=== PATIENT | female | born 2000 | race African-American/Black ===

== ENCOUNTER 2023-08-05 23:01 | Emergency (ER) | payer SELFPAY ==
[2023-08-05] MEDS ORDERED: Acetaminophen 500 MG TAB ONE (23:18)
[2023-08-05] MEDS ORDERED: Ondansetron ODT 4 MG TAB ONE (23:19)
[2023-08-06 00:09] LABS: #Eosinphils 0.1 thou/uL (0.0-0.7); #Monocytes 0.7 thou/uL (0.11-0.59); #Neutrophils 3.8 thou/uL (1.40-6.50); %Basophils 0.3 % (0.0-1.0); %Eosinophils 1.9 % (0.0-10.0); %Lymphocytes 31.9 % (21.0-51.0); %Monocytes 10.8 % (0.0-10.0); Hematocrit 34.3 % (36.0-47.0); Hemoglobin 11.2 g/dL (12.0-16.0); Mean Corpuscular HGB CONC 32.7 g/dL (32.0-36.0); Mean Corpuscular Hemoglobin 28.3 pg (27.0-31.0); Mean Corpuscular Volume 86.6 fl (78.0-98.0); Mean Platelet Volume 10.6 fL (7.4-10.4); Platelet Count 222 10x3/uL (130-400); RBC Distribution Width 14.4 % (11.5-14.5); Red Blood Cell (RBC) Count 3.96 mill/uL (4.20-5.40); White Blood Cell (WBC) Count 6.8 10x3/uL (4.8-10.8)
[2023-08-06 00:18] LABS: BHCG - Serum Negative (NEGATIVE); Pregs Control Background? CLEAR/WHITE (CLR/WHITE); Pregs Control Bar Appear? YES (CONTROL BAR)
[2023-08-06 00:26] LABS: Influenza A by NAA Not Detected (NotDetected); Influenza B by NAA Not Detected (NotDetected); SARS-CoV-2 NAA Rapid Test Not Detected (NotDetected)
[2023-08-06 00:34] LABS: ALT (SGPT) 46 U/L (8-55); AST (SGOT) 35 U/L (5-34); Albumin 3.5 g/dL (3.5-5.0); Alkaline Phosphatase 57 U/L (40-110); Anion Gap 13 mmol/L (10-20); BUN (Urea Nitrogen) 5 mg/dL (7.0-18.7); Bilirubin, Total 0.3 mg/dL (0.2-1.2); Calc. Creatinine Clearance 0 mL/min (70-130); Carbon Dioxide 27 mmol/L (22-29); Chloride 102 mmol/L (98-107); Estimated GFR 118; Globulin 3.4 g/dL (2.4-3.5); Glucose 87 mg/dL (70-105); Potassium 3.4 mmol/L (3.5-5.1); Protein, Total 6.9 g/dL (6.0-8.3); Sodium 139 mmol/L (136-145)
[2023-08-06 00:38] LABS: Troponin I 0.011 ng/mL (< 0.028)
[2023-08-06 02:00] LABS: Bacteria/HPF 4+ HPF (None Seen); Bilirubin Negative (Negative); Blood, Urine Trace (Negative); CAUTI Indications for Culture Pelvic or flank pain; Clarity Turbid (Clear); Glucose, Urine (Dipstick) Normal (Negative); Ketone, Urine Negative (Negative); Leukocyte 500 Leu/uL (Negative); Nitrite 2+ (Negative); Protein, Urine (Dipstick) 30 mg/dL (Neg-Trace); RBC/HPF 0-3 HPF (0-3); Specific Gravity, Urine 1.011 (1.002-1.036); Squamous Epithelial 0-3 HPF (0-3); WBC/HPF Greater than 50 HPF (0-3)
[2023-08-06 02:01] LABS: Urine Culture Reflex Yes Yes
[2023-08-06 16:57] LABS: Chlam.trachomatis by PCR,Urine DETECTED (NotDetected); GC N.gonorrhoeae PCR,UrineVOID Not Detected (NotDetected)
== END 2023-08-06 02:23 | disposition home or self-care (01) ==
LOC: ERS 23:01
DX: N10 Acute pyelonephritis (principal); R07.89 Other chest pain
CPT/HCPCS: 36415; 71045; 80053; 81001; 84484; 84703; 85025; 87077; 87086; 87480; 87491; 87510; 87591; 87660; 93005; Q0162

== ENCOUNTER 2023-09-01 12:31 | Inpatient (IN) | payer OTHER, SELFPAY ==
[2023-09-01 13:05] LABS: Bacteria/HPF 4+ HPF (None Seen); Bilirubin Negative (Negative); Blood, Urine Negative (Negative); CAUTI Indications for Culture Pelvic or flank pain; Clarity Turbid (Clear); Glucose, Urine (Dipstick) Normal (Negative); Ketone, Urine Negative (Negative); Leukocyte 250 Leu/uL (Negative); Nitrite 1+ (Negative); Protein, Urine (Dipstick) Negative (Neg-Trace); RBC/HPF 0-3 HPF (0-3); Specific Gravity, Urine 1.011 (1.002-1.036); Urobilinogen Normal mg/dL (Less than 2); WBC/HPF 21-50 HPF (0-3); pH, Urine 6.5 (5.0-9.0)
[2023-09-01 13:06] LABS: Amphetamine Not Detected (NotDetected); Barbiturates Screen Not Detected (NotDetected); Benzodiazepine Screen Detected (NotDetected); Cocaine Metabolite Screen Not Detected (NotDetected); Methadone Not Detected (NotDetected); Methamphetamine Not Detected (NotDetected); Opiate Screen Not Detected (NotDetected); Oxycodone Screen Not Detected (NotDetected); Phencyclidine (PCP) Not Detected (NotDetected); THC/Cannabinoid Screen Detected (NotDetected); Tricyclic Screen Not Detected (NotDetected)
[2023-09-01 13:09] LABS: Pregnancy Test - Urine (BHCG) Negative (Negative); Pregu Control Background? CLEAR/WHITE (CLR/WHITE); Pregu Control Bar Appear? YES (CONTROL BAR); Specific Gravity 1.011 (1.002-1.036); Urine Culture Reflex Yes Yes
[2023-09-01] MEDS ORDERED: Sodium Chloride 0.9% 100 ML ONE (13:29)
[2023-09-01] MEDS ORDERED: cefTRIAXone (ROCEPHIN) 1 GM VIAL ONE (13:29)
[2023-09-01 13:36] LABS: #Basophils Less than 0.03 10x3/uL (0.0-0.2); #Eosinphils Less than 0.03 10x3/uL (0.0-0.7); %Basophils 0.1 % (0.0-1.0); %Eosinophils 0.2 % (0.0-10.0); %Monocytes 6.6 % (0.0-10.0); %Neutrophils 75.8 % (42.0-75.0); Hematocrit 36.8 % (36.0-47.0); Hemoglobin 11.5 g/dL (12.0-16.0); Mean Corpuscular HGB CONC 31.3 g/dL (32.0-36.0); Mean Corpuscular Hemoglobin 27.1 pg (27.0-31.0); Mean Corpuscular Volume 86.6 fL (78.0-98.0); Mean Platelet Volume 10.3 fL (7.4-10.4); Platelet Count 358 10x3/uL (130-400); RBC Distribution Width 14.6 % (11.5-14.5); Red Blood Cell (RBC) Count 4.25 mill/uL (4.20-5.40)
[2023-09-01] MEDS ORDERED: Calcium Carbonate 500 MG ChewTAB PO PRN (13:58)
[2023-09-01] MEDS ORDERED: Senokot S 8.6-50 MG TAB PO PRN (13:58)
[2023-09-01] MEDS ORDERED: Acetaminophen 325 MG TAB PO PRN (13:58)
[2023-09-01 14:07] LABS: Alcohol Less than 10.0 mg/dL (Less than 10)
[2023-09-01 14:10] LABS: Acetaminophen 16 mcg/mL (10.0-30.0); Salicylate Less than 8.0 mg/dL (15.0-30.0)
[2023-09-01 14:11] LABS: ALT (SGPT) 10 U/L (8-55); AST (SGOT) 11 U/L (5-34); Albumin 4.1 g/dL (3.5-5.0); Alkaline Phosphatase 52 U/L (40-110); Anion Gap 13 mmol/L (10-20); BUN (Urea Nitrogen) 5 mg/dL (7.0-18.7); Bilirubin, Total 0.2 mg/dL (0.2-1.2); Calc. Creatinine Clearance 0 mL/min (70-130); Calcium 9.2 mg/dL (7.8-10.44); Carbon Dioxide 23 mmol/L (22-29); Chloride 105 mmol/L (98-107); Estimated GFR 125; Globulin 4.1 g/dL (2.4-3.5); Glucose 102 mg/dL (70-105); Lipase 22 U/L (8-78); Potassium 4.4 mmol/L (3.5-5.1); Protein, Total 8.2 g/dL (6.0-8.3); Sodium 137 mmol/L (136-145)
[2023-09-01] MEDS ORDERED: Doxycycline 100 MG in Sodium Chloride 0.9% 100 ML IVPB SCH (14:45)
[2023-09-01] MEDS ORDERED: HYDROcodone/Acetaminophen 5/325 mg Tablet PO PRN (15:00)
[2023-09-01 16:02] VITALS: BMI 19.1
[2023-09-01] MEDS: Sodium Chloride 0.9% 1,000 ML IV SCH (16:23)
[2023-09-01] MEDS: Azithromycin 200 MG/5 ML Oral Suspension PO SCH (16:24)
[2023-09-01] MEDS: Metoclopramide HCl 10 MG (2 mL) VIAL IVP SCH (16:58)
[2023-09-01] MEDS: Meropenem 1 GM in Sodium Chloride 0.9% 100 ML IVPB SCH (17:06)
[2023-09-01] MEDS: metroNIDAZOLE 500 MG in Premix 1 BAG IVPB SCH (20:47)
[2023-09-01] MEDS: Ondansetron PF 4 MG/2 ML Vial IVP PRN (20:47)
[2023-09-01] MEDS ORDERED: Meropenem 1 GM in Sodium Chloride 0.9% 100 ML IVPB SCH (22:00)
[2023-09-01] MEDS: Ondansetron PF 4 MG/2 ML Vial IVP SCH (22:07)
[2023-09-01] MEDS: Famotidine/PF 20 mg/2ml Vial SLOW IVP SCH (22:12)
[2023-09-02] MEDS: Meropenem 1 GM in Sodium Chloride 0.9% 100 ML IVPB SCH (02:09)
[2023-09-02 05:15] LABS: #Basophils Less than 0.03 10x3/uL (0.0-0.2); %Basophils 0.2 % (0.0-1.0); %Eosinophils 0.6 % (0.0-10.0); %Lymphocytes 32.9 % (21.0-51.0); %Monocytes 6.7 % (0.0-10.0); %Neutrophils 59.5 % (42.0-75.0); Hematocrit 33.2 % (36.0-47.0); Hemoglobin 10.5 g/dL (12.0-16.0); Mean Corpuscular HGB CONC 31.6 g/dL (32.0-36.0); Mean Corpuscular Hemoglobin 27.5 pg (27.0-31.0); Mean Corpuscular Volume 86.9 fL (78.0-98.0); Mean Platelet Volume 10.2 fL (7.4-10.4); Platelet Count 338 10x3/uL (130-400); RBC Distribution Width 14.6 % (11.5-14.5); Red Blood Cell (RBC) Count 3.82 mill/uL (4.20-5.40)
[2023-09-02 05:34] LABS: ALT (SGPT) 7 U/L (8-55); AST (SGOT) 8 U/L (5-34); Albumin 3.8 g/dL (3.5-5.0); Alkaline Phosphatase 49 U/L (40-110); Anion Gap 10 mmol/L (10-20); BUN (Urea Nitrogen) 4 mg/dL (7.0-18.7); Bilirubin, Total 0.3 mg/dL (0.2-1.2); Calc. Creatinine Clearance 103 mL/min (70-130); Calcium 8.7 mg/dL (7.8-10.44); Carbon Dioxide 25 mmol/L (22-29); Chloride 106 mmol/L (98-107); Estimated GFR 125; Globulin 3.2 g/dL (2.4-3.5); Glucose 100 mg/dL (70-105); Potassium 3.8 mmol/L (3.5-5.1); Sodium 137 mmol/L (136-145)
[2023-09-02 05:55] LABS: HIV (1/2) Antibody/Antigen Non-Reactive (NonReactive); HIV 1/2 INDEX 0.21 S/CO (<1.00)
[2023-09-02] MEDS: Ketorolac Tromethamine 30 MG (1 mL) VIAL IVP SCH (06:39)
[2023-09-02] MEDS ORDERED: Loperamide HCl 2 MG CAP PO PRN (20:11)
[2023-09-02] MEDS: Saccharomyces boulardii 250 MG CAP PO SCH (20:41)
[2023-09-03 04:01] LABS: #Basophils Less than 0.03 10x3/uL (0.0-0.2); #Eosinphils Less than 0.03 10x3/uL (0.0-0.7); %Basophils 0.3 % (0.0-1.0); %Eosinophils 0.3 % (0.0-10.0); %Lymphocytes 29.5 % (21.0-51.0); %Monocytes 7.7 % (0.0-10.0); %Neutrophils 61.9 % (42.0-75.0); Hematocrit 30.1 % (36.0-47.0); Hemoglobin 9.6 g/dL (12.0-16.0); Mean Corpuscular HGB CONC 31.9 g/dL (32.0-36.0); Mean Corpuscular Hemoglobin 26.7 pg (27.0-31.0); Mean Corpuscular Volume 83.6 fL (78.0-98.0); Mean Platelet Volume 9.9 fL (7.4-10.4); Platelet Count 326 10x3/uL (130-400); RBC Distribution Width 14.3 % (11.5-14.5)
[2023-09-03 04:19] LABS: Anion Gap 13 mmol/L (10-20); BUN (Urea Nitrogen) Less than 4 mg/dL (7.0-18.7); Calc. Creatinine Clearance 102 mL/min (70-130); Calcium 9.1 mg/dL (7.8-10.44); Carbon Dioxide 25 mmol/L (22-29); Chloride 104 mmol/L (98-107); Estimated GFR 125; Glucose 107 mg/dL (70-105); Potassium 3.6 mmol/L (3.5-5.1); Sodium 138 mmol/L (136-145)
[2023-09-03 12:09] VITALS: BP 125/68; TEMP 98.3
== END 2023-09-03 15:32 | disposition home or self-care (01) | DRG 758 ==
LOC: ERS 12:31 → SUATTDRO 12:31 → T4-A 13:57
PROVIDERS: ADMIT Internal Medicine; ATTEND Hospitalist
DX: A56.02 Chlamydial vulvovaginitis (principal); N10 Acute pyelonephritis; Z16.24 Resistance to multiple antibiotics; F12.10 Cannabis abuse, uncomplicated
CPT/HCPCS: 36415; 80048; 80053; 80306; 80307; 81001; 81025; 83605; 83690; 85025; 86140; 87077; 87086; 87186; 87389; 96365; 96375; J0696; J2185; J2405; J2765; J3490; J7050; S0028

== ENCOUNTER 2024-04-22 07:13 | Emergency (ER) | payer OTHER, SELFPAY ==
[2024-04-22] MEDS ORDERED: Ketorolac Tromethamine 30 MG (1 mL) VIAL ONE (07:29)
[2024-04-22] MEDS ORDERED: Droperidol 5 MG/2 ML VIAL ONE (07:30)
[2024-04-22 07:35] LABS: #Basophils Less than 0.03 10x3/uL (0.0-0.2); #Eosinophils Less than 0.03 10x3/uL (0.0-0.7); %Basophils 0.2 % (0.0-1.0); %Eosinophils 0.1 % (0.0-10.0); %Lymphocytes 16.4 % (21.0-51.0); %Monocytes 4.1 % (0.0-10.0); %Neutrophils 78.7 % (42.0-75.0); Hematocrit 40.3 % (36.0-47.0); Hemoglobin 12.9 g/dL (12.0-16.0); Mean Corpuscular Hemoglobin 24.9 pg (27.0-31.0); Mean Corpuscular Volume 77.6 fL (78.0-98.0); Platelet Count 297 10x3/uL (130-400); RBC Distribution Width 18.6 % (11.5-14.5); Red Blood Cell (RBC) Count 5.19 mill/uL (4.20-5.40)
[2024-04-22 07:56] LABS: ALT (SGPT) 11 U/L (8-55); AST (SGOT) 17 U/L (5-34); Albumin 4.4 g/dL (3.5-5.0); Alkaline Phosphatase 46 U/L (40-110); Anion Gap 21 mmol/L (10-20); BHCG - Serum Negative (NEGATIVE); BUN (Urea Nitrogen) 12 mg/dL (7.0-18.7); Bilirubin, Total 0.6 mg/dL (0.2-1.2); Calc. Creatinine Clearance 0 mL/min (70-130); Calcium 9.4 mg/dL (7.8-10.44); Carbon Dioxide 18 mmol/L (22-29); Chloride 101 mmol/L (98-107); Estimated GFR 105; Globulin 4.4 g/dL (2.4-3.5); Glucose 148 mg/dL (70-105); Lipase 16 U/L (8-78); Potassium 4.1 mmol/L (3.5-5.1); Pregs Control Background? CLEAR/WHITE (CLR/WHITE); Pregs Control Bar Appear? YES (CONTROL BAR); Protein, Total 8.8 g/dL (6.0-8.3); Sodium 136 mmol/L (136-145)
[2024-04-22 09:13] LABS: Bilirubin Negative (Negative); Blood, Urine Negative (Negative); CAUTI Indications for Culture Dysuria,urgency,freq; Clarity Turbid (Clear); Glucose, Urine (Dipstick) Normal (Negative); Ketone, Urine Greater than 150 mg/dL (Negative); Leukocyte Negative Leu/uL (Negative); Nitrite Negative (Negative); Protein, Urine (Dipstick) 100 mg/dL (Neg-Trace); RBC/HPF 0-3 HPF (0-3); Specific Gravity, Urine 1.033 (1.002-1.036); Squamous Epithelial 21-50 HPF (0-3); WBC/HPF 0-3 HPF (0-3)
[2024-04-22 09:14] LABS: Bacteria/HPF 1+ HPF (None Seen); Urine Culture Reflex No No
== END 2024-04-22 09:54 | disposition home or self-care (01) ==
LOC: ERS 07:13
DX: K52.9 Noninfective gastroenteritis and colitis, unspecified (principal); N39.0 Urinary tract infection, site not specified; F17.290 Nicotine dependence, other tobacco product, uncomplicated
CPT/HCPCS: 36415; 80053; 81001; 83690; 84703; 85025; 96374; 96375; J1790; J1885

== ENCOUNTER 2025-03-12 15:51 | Emergency (ER) | payer OTHER ==
[2025-03-12 18:27] LABS: BHCG - Serum Negative (NEGATIVE); Pregs Control Background? CLEAR/WHITE (CLR/WHITE); Pregs Control Bar Appear? YES (CONTROL BAR)
[2025-03-12] MEDS ORDERED: Acetaminophen 500 MG TAB ONE (20:35)
== END 2025-03-12 20:34 ==
LOC: ERS 15:51
DX: S62.615A Displaced fracture of proximal phalanx of left ring finger, initial encounter for closed fracture (principal); F17.290 Nicotine dependence, other tobacco product, uncomplicated; Y09 Assault by unspecified means
CPT/HCPCS: 29125; 36415; 70450; 70486; 84703